=== PATIENT | male | born 1965 | race Two or more races ===

== ENCOUNTER 2020-09-02 13:32 | Emergency (ER) | payer MEDICAID, MEDICARE ==
[~2020-09-02] VITALS: Ht 160 cm; Wt 69.4 kg
--- NOTE | 2020-09-02 13:56 | NUR ---
[facility]. C/O R SHOULDER PAIN STATES FELL 3 HRS AGO. RATES PAIN 8/10. DENIES NUMBNESS/TINGLILNG IN THE EXTREMITY. ATTACHED ON A MONITOR. WILL CONTINUE TO MONITOR THE PATIENT.
[2020-09-02 14:51] LABS: BASOPHILS % (AUTO) 0.2 % (0.0-2.0); HEMATOCRIT 34 % (39-51); HEMOGLOBIN 11.5 g/dL (13.5-17.5); LYMPHOCYTES # (AUTO) 1.5 /CMM (0.8-4.8); LYMPHOCYTES % (AUTO) 14.9 % (20.0-44.0); MEAN CORPUSCULAR HGB CONC 34 g/dl (31.0-36.0); MEAN CORPUSCULAR VOLUME 86 fL (80-96); MONOCYTES # (AUTO) 0.5 /CMM (0.1-1.30); NEUTROPHILS # (AUTO) 7.8 /CMM (1.8-8.9); NEUTROPHILS % (AUTO) 78.9 % (43.0-81.0); PLATELET COUNT (AUTO) 230 /CMM (150-450); RED BLOOD CELL COUNT(AUTO) 3.94 MIL/uL (4.5-6.0); WHITE BLOOD COUNT (AUTO) 9.8 K/uL (4.3-11.0)
[2020-09-02 14:57] LABS: CALCIUM, SERUM 8.7 mg/dL (8.5-10.1); CARBON DIOXIDE 27 mmol/L (21-32); CHLORIDE 104 mmol/L (98-107); CREATININE 0.9 mg/dL (0.6-1.3); GLUCOSE 127 mg/dL (74-106); POTASSIUM 3.3 mmol/L (3.5-5.1); SODIUM SERUM 139 mmol/L (136-145); UREA NITROGEN, BLOOD 13 mg/dL (7-18)
--- NOTE | 2020-09-02 15:38 | NUR ---
PATIENT TAKEN FOR CT
[2020-09-02] MEDS ORDERED: POTASSIUM CHLORIDE 20 MEQ TAB.PRT.SR PO ONE ×2 (16:30→16:37)
--- NOTE | 2020-09-02 17:46 | NUR ---
CALLED [facility] FOR TRANSPORT TO SNF. ETA 30-45 MINUTES.
--- NOTE | 2020-09-02 18:21 | NUR ---
report given to nurse Lisa
[2020-09-02 18:28] VITALS: BP 135/87
--- NOTE | 2020-09-02 18:28 | NUR ---
Patient discharged to home in stable condition. Written and verbal after care instructions given. Patient verbalizes understanding of instruction.The patient left ER in stable condition via arranged transpo.
== END 2020-09-02 18:29 ==
LOC: ER 13:41 → EDBD 13:41 → ER 18:29
DX: S42.021A Displaced fracture of shaft of right clavicle, initial encounter for closed fracture (principal); D49.6 Neoplasm of unspecified behavior of brain; R94.31 Abnormal electrocardiogram [ECG] [EKG]; E87.6 Hypokalemia; D64.9 Anemia, unspecified; Z91.013 Allergy to seafood; Z98.890 Other specified postprocedural states; W18.39XA Other fall on same level, initial encounter; Y93.89 Activity, other specified; Y92.89 Other specified places as the place of occurrence of the external cause; Y99.8 Other external cause status
CPT/HCPCS: 36415; 70450-TC; 71045-TC; 72125-TC; 73030-TC; 80048-TC; 82962-TC; 84484-TC; 85025-TC